=== PATIENT | female | born 1960 | race Caucasian/White ===

== ENCOUNTER 2021-10-02 03:46 | Emergency (ER) | payer OTHER ==
[~2021-10-02] VITALS: Ht 160 cm; Wt 65.8 kg
--- NOTE | 2021-10-02 04:15 | NUR ---
Dr. Hayden at bedside for MSE.
[2021-10-02] MEDS ORDERED: MAG HYDROX/AL HYDROX/SIMETH 30 ML LIQUID UDC ONE (04:25)
[2021-10-02] MEDS ORDERED: PANTOPRAZOLE SODIUM 40 MG VIAL ONE (04:25)
[2021-10-02] MEDS ORDERED: LIDOCAINE VISCUS 2% 15 ML UDC ONE (04:25)
[2021-10-02] MEDS ORDERED: LIDOCAINE VISCUS 2% 15 ML UDC MM ONE (04:30)
[2021-10-02] MEDS ORDERED: PANTOPRAZOLE SODIUM 40 MG VIAL IV ONE (04:30)
[2021-10-02] MEDS ORDERED: MAG HYDROX/AL HYDROX/SIMETH 30 ML LIQUID UDC PO ONE (04:30)
[2021-10-02] MEDS ORDERED: IV NS 1000 ML 1,000 ML IV ONE (04:30)
[2021-10-02 04:36] LABS: HEMATOCRIT 39.4 % (31.2-41.9); MEAN CORPUSCULAR HEMOGLOBIN 20.1 uug (24.7-32.8); MEAN CORPUSCULAR VOLUME 63.2 fL (75.5-95.3); PLATELET COUNT (AUTO) 227 K/uL (179-408)
[2021-10-02 04:56] LABS: CARBON DIOXIDE 29 mmol/L (21-32); CHLORIDE 103 mmol/L (98-107); CREATININE 0.9 mg/dL (0.6-1.3); GLUCOSE 100 mg/dL (74-106); POTASSIUM 3.9 mmol/L (3.5-5.1); UREA NITROGEN, BLOOD 19 mg/dL (7-18)
[2021-10-02] MEDS ORDERED: LORAZEPAM 2 MG/1 ML VIAL IV ONE (05:15)
[2021-10-02] MEDS ORDERED: LORAZEPAM 2 MG/1 ML VIAL ONE (05:28)
[2021-10-02] MEDS ORDERED: OMEP20CA15 PO (06:11)
--- NOTE | 2021-10-02 06:36 | NUR ---
Patient discharged to home in stable condition. Written and verbal after care instructions given. Patient verbalizes understanding of instructions. Stressed follow up or return to ER for worsening s/s. Patient out of ER with steady gait, no acute signs of distress, VSS, all belongings taken, IV site discontinued, provided with copies of labs, instructed not to drive, will uber home.
[2021-10-02 06:39] VITALS: BP 127/83
== END 2021-10-02 06:39 | disposition home or self-care (01) ==
LOC: ER 03:55
DX: F41.9 Anxiety disorder, unspecified (principal); F32.A Depression, unspecified; R10.13 Epigastric pain; Z72.820 Sleep deprivation; I10 Essential (primary) hypertension; E78.5 Hyperlipidemia, unspecified; Z82.49 Family history of ischemic heart disease and other diseases of the circulatory system
CPT/HCPCS: 99285; 96374; 71045; 96361; 96375; 80048; 85025; 84484 ×2; 36415; 93005; J2060; C9113; J7040; A4663

== ENCOUNTER 2022-02-15 02:56 | Emergency (ER) | payer SELFPAY ==
[~2022-02-15 02:56] MED LIST: OMEP20CA15 PO
--- NOTE | 2022-02-15 03:08 | NUR ---
PATIENT WAS CALLED TO BE TRIAGED BUT WAS NOT PRESENT IN THE WAITING ROOM OR OUTSIDE OF ER.
--- NOTE | 2022-02-15 03:27 | NUR ---
PATIENT WAS CALLED TO BE TRIAGED BUT WAS NOT PRESENT IN THE WAITING ROOM OR OUTSIDE OF ER.
--- NOTE | 2022-02-15 03:55 | NUR ---
PATIENT WAS CALLED TO BE TRIAGED BUT WAS NOT PRESENT IN THE WAITING ROOM OR OUTSIDE OF ER. PATIENT WAS NOT TRIAGED OR SEEN BY ERMD.
== END 2022-02-15 03:56 | disposition left against medical advice (07) ==
LOC: ER 03:01
DX: Z53.21 Procedure and treatment not carried out due to patient leaving prior to being seen by health care provider (principal)